=== PATIENT | female | born 2000 | race Caucasian/White ===

== ENCOUNTER 2018-12-12 18:13 | Outpatient (CLI) | payer SELFPAY ==
[~2018-12-12] VITALS: Ht 157.5 cm; Wt 74.5 kg
[2018-12-12 18:34] VITALS: BP 123/79
[2018-12-12] MEDS ORDERED: ACET325C5 PO (18:49)
[2018-12-12 18:54] LABS: MICROSCOPIC INDICATED
[2018-12-12 19:20] LABS: AMPHETAMINE SCREEN, URINE Negative (Negative); BARBITURATE SCREEN, URINE Negative (Negative); BENZODIAZEPINE SCREEN, URINE Negative (Negative); CANNABINOID SCREEN, URINE Negative (Negative); COCAINE SCREEN, URINE Negative (Negative); METHADONE SCREEN, URINE Negative (Negative); OPIATE SCREEN, URINE Negative (Negative)
[2018-12-12] MEDS ORDERED: ACETAMINOPHEN 325 MG TABLET ONE (19:30)
[2018-12-12] MEDS ORDERED: ACETAMINOPHEN 325 MG TABLET PO ONE (19:30)
== END 2018-12-12 20:23 | disposition home or self-care (01) ==
LOC: LDOP 18:13
PROVIDERS: ATTEND Obstetrics & Gynecology
DX: O26.893 Other specified pregnancy related conditions, third trimester (principal); R51 Headache; Z3A.35 35 weeks gestation of pregnancy
CPT/HCPCS: 59025; 80307; 81001; 99201; G0463

== ENCOUNTER 2018-12-27 11:18 | Outpatient (CLI) | payer SELFPAY ==
[~2018-12-27] VITALS: Ht 157.5 cm; Wt 70.0 kg
[~2018-12-27 11:18] MED LIST: ACET325C5 PO
[2018-12-27 11:53] VITALS: BP 124/73
[2018-12-27 12:17] LABS: AMPHETAMINE SCREEN, URINE Negative (Negative); BARBITURATE SCREEN, URINE Negative (Negative); BENZODIAZEPINE SCREEN, URINE Negative (Negative); CANNABINOID SCREEN, URINE Negative (Negative); COCAINE SCREEN, URINE Negative (Negative); METHADONE SCREEN, URINE Negative (Negative); OPIATE SCREEN, URINE Negative (Negative)
[2018-12-27 12:25] LABS: MICROSCOPIC INDICATED
[2018-12-27] MEDS ORDERED: PREN1TAB10 PO (12:46)
== END 2018-12-27 12:55 | disposition home or self-care (01) ==
LOC: LDOP 11:18
PROVIDERS: ATTEND Obstetrics & Gynecology
DX: O26.893 Other specified pregnancy related conditions, third trimester (principal); Z3A.38 38 weeks gestation of pregnancy
CPT/HCPCS: 59025; 80307; 81001; 87081; 87086; 87147; 99211; G0463

== ENCOUNTER 2019-01-01 15:22 | Outpatient (CLI) | payer SELFPAY ==
[~2019-01-01] VITALS: Ht 162.6 cm; Wt 78.2 kg
[~2019-01-01 15:22] MED LIST changes: -ACET325C5 PO; +ACET325C6 PO; +PREN1TAB10 PO
[2019-01-01 16:29] LABS: MICROSCOPIC INDICATED
[2019-01-01 16:51] LABS: AMPHETAMINE SCREEN, URINE Negative (Negative); BARBITURATE SCREEN, URINE Negative (Negative); BENZODIAZEPINE SCREEN, URINE Negative (Negative); CANNABINOID SCREEN, URINE Negative (Negative); COCAINE SCREEN, URINE Negative (Negative); METHADONE SCREEN, URINE Negative (Negative); OPIATE SCREEN, URINE Negative (Negative)
[2019-01-01 17:11] LABS: CLUE CELLS PRESENT (NONE SEEN); WET PREP WBCS FEW (FEW)
== END 2019-01-01 18:06 | disposition home or self-care (01) ==
LOC: LDOP 15:22
PROVIDERS: ATTEND Obstetrics & Gynecology
DX: O42.92 Full-term premature rupture of membranes, unspecified as to length of time between rupture and onset of labor (principal); Z3A.39 39 weeks gestation of pregnancy; Z88.1 Allergy status to other antibiotic agents
CPT/HCPCS: 59025; 80307; 81001; 87086; 87210; 87491; 87591; 87808; 89060; 99211; G0463; Q0114

== ENCOUNTER 2019-01-06 17:16 | Inpatient (IN) | payer SELFPAY ==
[~2019-01-06] VITALS: Ht 165.1 cm; Wt 80.0 kg
[2019-01-06] MEDS ORDERED: LACTATED RINGERS 1,000 ML IV SCH ×2 (17:22→17:52)
[2019-01-06] MEDS ORDERED: OXYTOCIN 30U/ 0.9% NaCL 500ML 500 ML IV ONE (17:22)
[2019-01-06] MEDS ORDERED: LIDOCAINE 1%, 20ML ONE (17:28)
[2019-01-06] MEDS ORDERED: MISOPROSTOL 200 MCG TABLET ONE (17:28)
[2019-01-06] MEDS ORDERED: NEWBORN KIT ONE (17:28)
[2019-01-06] MEDS ORDERED: OXYTOCIN 30U/ 0.9% NaCL 500ML 500 ML ONE ×2 (17:29→19:44)
[2019-01-06] MEDS ORDERED: VANCOMYCIN PMX 1GM/200ML 200 ML IVPB SCH (17:30)
[2019-01-06] MEDS ORDERED: CALCIUM CARBONATE 500 MG TAB.CHEW PO PRN (17:30)
[2019-01-06] MEDS ORDERED: ONDANSETRON 2MG/ML, 2ML IVPush PRN (17:30)
[2019-01-06] MEDS ORDERED: TERBUTALINE 1 MG/ML, 1ML IVPush PRN (17:30)
[2019-01-06 17:33] VITALS: BP 132/77
[2019-01-06 17:45] LABS: BASOPHILS # (AUTO) 0.04 x10^3/uL (0-0.3); BASOPHILS % (AUTO) 0 % (0-1); EOSINOPHILS # (AUTO) 0.09 x10^3/uL (0-0.8); EOSINOPHILS % (AUTO) 1 % (1-7); LYMPHOCYTES # (AUTO) 2.22 x10^3/uL (1-6.1); LYMPHOCYTES % (AUTO) 16 % (22-44); MD NO; MEAN CORPUSCULAR HEMOGLOBIN 28.7 pg (27.0-34.8); MEAN CORPUSCULAR HGB CONC 32.7 g/dL (32.4-35.8); MEAN CORPUSCULAR VOLUME 87.7 fL (80-100); MONOCYTES # (AUTO) 1.04 x10^3/uL (0-1.4); MONOCYTES % (AUTO) 7 % (2-9); NEUTROPHILS # (AUTO) 10.82 x10^3/uL (1.8-8.0); NEUTROPHILS % (AUTO) 76 % (42-75); PLATELET COUNT 210 x10^3/uL (130-400); RED BLOOD COUNT 4.45 x10^6/uL (3.82-5.3); RED CELL DISTRIBUTION WIDTH 14.2 % (9.6-15.2)
[2019-01-06] MEDS ORDERED: FENTANYL/BUPIV./NS/PF 250 ML EPIDCONT SCH (17:52)
[2019-01-06] MEDS ORDERED: FENTANYL/BUPIV./NS/PF 0 ML EPIDCONT ONE (17:57)
[2019-01-06] MEDS ORDERED: LACTATED RINGERS 1,000 ML IVBOLUS PRN (18:00)
[2019-01-06] MEDS ORDERED: EPHEDRINE 50 MG/ML, 1ML IVPush PRN (18:00)
[2019-01-06] MEDS ORDERED: IBUPROFEN 600 MG TABLET ONE (19:23)
[2019-01-06] MEDS: IBUPROFEN 600 MG TABLET PO PRN (19:29)
[2019-01-06] MEDS ORDERED: MAGNESIUM HYDROXIDE 8%, 30ML UDC PO PRN (19:30)
[2019-01-06] MEDS ORDERED: ACETAMINOPHEN 325 MG TABLET PO PRN ×2 (19:30)
[2019-01-06] MEDS ORDERED: ONDANSETRON 2MG/ML, 2ML IV PRN (19:30)
[2019-01-06] MEDS ORDERED: OXYcodone/APAP 5/325MG TABLET PO PRN ×2 (19:30)
[2019-01-06] MEDS ORDERED: METHYLERGONOVINE 0.2 MG/ML IM PRN (19:30)
[2019-01-06] MEDS ORDERED: MISOPROSTOL 200 MCG TABLET PR PRN (19:30)
[2019-01-06] MEDS: OXYTOCIN 30U/ 0.9% NaCL 500ML 500 ML IV SCH (19:46)
[2019-01-06] MEDS ORDERED: OXYcodone/APAP 5/325MG TABLET ONE (20:59)
[2019-01-06 21:34] LABS: AMPHETAMINE SCREEN, URINE Negative (Negative); BARBITURATE SCREEN, URINE Negative (Negative); BENZODIAZEPINE SCREEN, URINE Negative (Negative); CANNABINOID SCREEN, URINE Negative (Negative); COCAINE SCREEN, URINE Negative (Negative); METHADONE SCREEN, URINE Negative (Negative); OPIATE SCREEN, URINE Negative (Negative)
[2019-01-07 03:06] LABS: MEAN CORPUSCULAR HEMOGLOBIN 28.9 pg (27.0-34.8); MEAN CORPUSCULAR HGB CONC 33.1 g/dL (32.4-35.8); MEAN CORPUSCULAR VOLUME 87.4 fL (80-100); MEAN PLATELET VOLUME 9.3 fL (7.4-10.4); PLATELET COUNT 228 x10^3/uL (130-400); RED BLOOD COUNT 4.06 x10^6/uL (3.82-5.3); RED CELL DISTRIBUTION WIDTH 14.2 % (9.6-15.2)
[2019-01-07 03:34] LABS: MD YES
[2019-01-07 03:38] LABS: ANISOCYTOSIS 1+; BAND#(MANUAL) 0.35 x10^3/uL; BANDS%(MANUAL) 2 % (0-7); LYMPH#(MANUAL) 2.63 x10^3/uL (1-6.1); LYMPHS% (MANUAL) 15 % (22-44); MONOS#(MANUAL) 1.23 x10^3/uL (0.3-2.7); MONOS% (MANUAL) 7 % (2-9); SEGS% (MANUAL) 76 % (42-75)
[2019-01-07 03:39] LABS: <PLATELET ESTIMATE> ADEQUATE; <PLT MORPHOLOGY> NORMAL PLT MORPH
[2019-01-07] MEDS: OXYTOCIN 30U/ 0.9% NaCL 500ML 500 ML IV SCH ×2 (05:02→15:02)
[2019-01-07] MEDS: IBUPROFEN 600 MG TABLET PO PRN (07:45)
[2019-01-07] MEDS: DOCUSATE 100 MG CAPSULE PO PRN (07:45)
[2019-01-07] MEDS: PRENATAL VIT/IRON/FA 1 EACH TABLET PO SCH (07:46)
[2019-01-07 09:14] VITALS: BP 111/69
[2019-01-08 08:15] VITALS: BP 119/81
[2019-01-08] MEDS: PRENATAL VIT/IRON/FA 1 EACH TABLET PO SCH (09:00)
[2019-01-08] MEDS ORDERED: IBUP-1222 PO (11:37)
[2019-01-08] MEDS: DOCUSATE 100 MG CAPSULE PO PRN (17:00)
== END 2019-01-08 18:20 | disposition home or self-care (01) | DRG 807 ==
LOC: LDIP 17:16 → 2NW 21:32
PROVIDERS: ADMIT Obstetrics & Gynecology; ATTEND Obstetrics & Gynecology
PROC: 10E0XZZ Delivery of Products of Conception, External Approach (ICD-10-PCS; principal; 2019-01-06)
PROC: 0KQM0ZZ Repair Perineum Muscle, Open Approach (ICD-10-PCS; 2019-01-06)
DX: O99.824 Streptococcus B carrier state complicating childbirth (principal); Z37.0 Single live birth; O70.1 Second degree perineal laceration during delivery; O62.3 Precipitate labor; Z3A.39 39 weeks gestation of pregnancy; Z82.5 Family history of asthma and other chronic lower respiratory diseases; Z88.0 Allergy status to penicillin
CPT/HCPCS: 36415; 80307; 82803; 85025; 86850; 86900; 87070; 87075; 87205; 88307; G0378; J3370; J2590; J7120